=== PATIENT | female | born 1990 | race Two or more races ===

== ENCOUNTER 2021-07-22 16:46 | Inpatient (IN) | payer OTHER ==
[~2021-07-22] VITALS: Ht 157.5 cm; Wt 2.7 kg
[2021-07-22] MEDS ORDERED: PRENATAL TABLE1 EAC1 (17:39)
== END 2021-07-25 17:43 | disposition home or self-care (01) | DRG 785 ==
LOC: OBS/DEL 16:46 → OB/GYN 21:07 → LDR 21:07 → OB/GYN 07-23 00:31
PROVIDERS: ADMIT Obstetrics & Gynecology; ATTEND Obstetrics & Gynecology
PROC: 0UB70ZZ Excision of Bilateral Fallopian Tubes, Open Approach (ICD-10-PCS; 2021-07-22)
PROC: 4A1HXCZ Monitoring of Products of Conception, Cardiac Rate, External Approach (ICD-10-PCS; 2021-07-22)
PROC: 10D00Z1 Extraction of Products of Conception, Low, Open Approach (ICD-10-PCS; principal; 2021-07-22 22:15)
DX: O34.211 Maternal care for low transverse scar from previous cesarean delivery (principal); Z3A.37 37 weeks gestation of pregnancy; Z37.0 Single live birth; Z20.822 Contact with and (suspected) exposure to COVID-19

== ENCOUNTER 2023-05-02 05:30 | Day surgery (SDC) | payer OTHER ==
[2023-04-28 11:21] LABS: URINE APPEARANCE Clear; URINE BILIRRUBIN Negative (NEGATIVE); URINE BLOOD Negative; URINE COLOR Yellow; URINE GLUCOSE Negative (NEGATIVE); URINE LEUKOCYTE Negative; URINE NITRATE Negative; URINE PROTEIN Negative (NEGATIVE); URINE UROBILINOGEN 0.2 E.U./dl
[2023-04-28 11:27] LABS: URINE BACTERIA 1423.5 uL (0.0-1933); URINE EPITHELIAL CELLS 36.4 uL (0.0-38.8); URINE RBC 16.2 uL (0.0-20.8)
[2023-04-28 11:36] LABS: HEMATOCRIT 36.4 % (36.0-45.00); HEMOGLOBIN 11.6 g/dL (12.0-15.00); MEAN CELL VOLUME 76.9 fL (80.00-100.00); MEAN CORPUSCULAR HEMOGLOBIN 24.6 pg (27.00-32.0); PLATELET COUNT 220 K/uL (150-450); RED BLOOD COUNT 4.73 M/uL (4.00-6.00); RED CELL DISTRIBUTION WIDTH 16.5 % (11.5-14.5)
[2023-04-28 12:22] LABS: ALBUMIN 3.9 gm/dL (3.4-5.0); BILIRUBIN TOTAL 0.35 mg/dL (0.3-1.2); CALCIUM 9.1 mg/dL (8.5-10.1); CREATININE SERUM 0.58 mg/dL (0.55-1.02); GFR 122.06; GLOBULINA 3.3 G/DL (2.4-3.5); POTASSIUM 4.33 mEq/L (3.5-5.1); TOTAL PROTEIN 7.2 gm/dL (6.4-8.2)
[2023-04-28 12:25] LABS: INR 0.98; PARTIAL THROMBOPLASTIN TIME 31.6 SECONDS (22.0-34.0); PROTHROMBIN TIME 10.3 SECONDS (9.0-11.5)
[~2023-05-02] VITALS: Ht 157.5 cm; Wt 96.6 kg
[~2023-05-02 05:30] MED LIST: PRENATAL TABLE1 EAC1
[2023-05-02] MEDS ORDERED: CEFAZOLIN SODIUM 1,000 MG VIAL ONE ×2 (10:00→14:02)
[2023-05-02] MEDS ORDERED: CEFAZOLIN SODIUM 1,000 MG VIAL IV ONE (11:15)
[2023-05-02] MEDS ORDERED: CEFAZOLIN SODIUM 1,000 MG VIAL IV SCH (12:00)
[2023-05-02] MEDS ORDERED: FAMOTIDINE/PF 20 MG/10 ML SYRINGE IV SCH (12:00)
[2023-05-02] MEDS ORDERED: FAMOTIDINE/PF 20 MG/2 ML VIAL ONE (14:02)
== END 2023-05-02 15:55 | disposition home or self-care (01) ==
LOC: CIR.AMB 05:30
PROVIDERS: ATTEND Specialist
DX: N80.C11 Endometriosis of the anterior abdominal wall, fascia and muscular layers (principal); D21.4 Benign neoplasm of connective and other soft tissue of abdomen; Z20.822 Contact with and (suspected) exposure to COVID-19

== ENCOUNTER 2024-06-04 22:50 | Emergency (ER) | payer OTHER ==
[~2024-06-04] VITALS: Ht 157.5 cm; Wt 93.9 kg
[2024-06-05] MEDS ORDERED: PROMETHAZINE HCL 50 MG/ML AMPUL IM STA (00:49)
[2024-06-05] MEDS ORDERED: KETOROLAC TROMETHAMINE 60 MG VIAL IM STA (00:49)
[2024-06-05] MEDS ORDERED: 0.9 % SODIUM CHLORIDE 1,000 ML IV ONE (01:00)
[2024-06-05] MEDS ORDERED: PROMETHAZINE HCL 50 MG/ML AMPUL IM ONE (01:10)
[2024-06-05] MEDS ORDERED: KETOROLAC TROMETHAMINE 60 MG VIAL IM ONE (01:10)
[2024-06-05] MEDS ORDERED: BARIUM SULFATE 450 ML ORAL.SUSP PO ONE (01:23)
[2024-06-05 01:48] LABS: HEMATOCRIT 35.6 % (36.0-45.00); MEAN CELL VOLUME 76.6 fL (80.00-100.00); MEAN CORPUSCULAR HGB CONC 32.3 g/dl (32.0-36.0); PLATELET COUNT 207 K/uL (150-450); RED BLOOD COUNT 4.64 M/uL (4.00-6.00); RED CELL DISTRIBUTION WIDTH 15.1 % (11.5-14.5)
[2024-06-05 01:50] LABS: HEMOGLOBIN 11.5 g/dL (12.0-15.00); MEAN CORPUSCULAR HEMOGLOBIN 24.7 pg (27.00-32.0)
[2024-06-05 02:05] LABS: INR 0.95; PARTIAL THROMBOPLASTIN TIME 29.2 SECONDS (22.0-34.0); PROTHROMBIN TIME 10.4 SECONDS (9.0-11.5)
[2024-06-05 02:10] LABS: ALBUMIN 3.7 gm/dL (3.4-5.0); ALKALINE PHOSPHATASE 53 U/L (50-136); ALT/SGPT 20 U/L (12-78); AMYLASE 35 U/L (25-115); ANION GAP 10 (10.0-20.0); AST/SGOT 17 U/L (15-37); BILIRUBIN TOTAL 0.25 mg/dL (0.3-1.2); BILIRUBIN,CONJUGATED < 0.10 mg/dL (0.0-0.2); BILIRUBIN,UNCONJUGATED 0.15 mg/dL (0.0-0.6); BLOOD UREA NITROGEN 12 mg/dL (7-18); BUN CREA RATIO 18 (7.0-25.0); CALCIUM 9.5 mg/dL (8.5-10.1); CARBON DIOXIDE 25 mEq/L (21-32); CHLORIDE 110 mmol/L (98-107); CREATININE SERUM 0.65 mg/dL (0.55-1.02); GFR 106.31; GLOBULINA 3.5 G/DL (2.4-3.5); GLUCOSE FASTING 104 mg/dL (65-100); LIPASE 27 U/L (13-75); OSMOLALITY SERUM 281 MOSM/KG (275-295); POTASSIUM 3.88 mEq/L (3.5-5.1); SODIUM 141 mmol/L (136-145); TOTAL PROTEIN 7.2 gm/dL (6.4-8.2)
[2024-06-05 02:34] LABS: PH,URINE 7.5 (5.0-8.0); URINE APPEARANCE Clear; URINE BILIRRUBIN Negative (NEGATIVE); URINE BLOOD Small; URINE COLOR Yellow; URINE GLUCOSE Negative (NEGATIVE); URINE KETONE Negative (NEGATIVE); URINE LEUKOCYTE Negative; URINE NITRATE Negative; URINE PROTEIN Negative (NEGATIVE); URINE UROBILINOGEN 0.2 E.U./dl
[2024-06-05 02:38] LABS: URINE BACTERIA 113.8 uL (0.0-1933); URINE EPITHELIAL CELLS 13.5 uL (0.0-38.8); URINE RBC 36.5 uL (0.0-20.8)
[2024-06-05 02:43] LABS: URINE WBC 0.7 uL (0.0-23.2)
[2024-06-05] MEDS ORDERED: KETOROLAC TROMETHAMINE 30 MG VIAL IV STA (06:56)
[2024-06-05] MEDS ORDERED: KETOROLAC TROMETHAMINE 30 MG VIAL ONE (07:20)
== END 2024-06-05 11:49 | disposition home or self-care (01) ==
LOC: ER 22:53
PROVIDERS: General Practice
DX: R10.31 Right lower quadrant pain (principal); D25.9 Leiomyoma of uterus, unspecified; Z98.891 History of uterine scar from previous surgery

== ENCOUNTER 2024-07-05 09:09 | Outpatient (CLI) | payer OTHER | END 2024-07-05 09:14 | disposition home or self-care (01) | LOC: SONOGRAMA 09:09 | PROVIDERS: ATTEND Specialist | DX: N80.C11 Endometriosis of the anterior abdominal wall, fascia and muscular layers (principal) ==

== ENCOUNTER 2024-07-16 11:01 | Outpatient (CLI) | payer OTHER | END 2024-07-16 11:03 | disposition home or self-care (01) | LOC: TOM 11:01 | PROVIDERS: ATTEND Specialist | DX: J98.59 Other diseases of mediastinum, not elsewhere classified (principal) ==

== ENCOUNTER 2024-10-03 08:05 | Day surgery (SDC) | payer OTHER ==
[2024-09-26 08:49] LABS: BASO % 0.6 % (0.1-1.2); EOS # 0.16 (0.04-0.54); EOS % 1.8 % (0.7-7.0); LYMPH # 2.75 (1.18-3.74); LYMPH % 31.1 % (19.3-53.1); MEAN PLATELET VOLUME 11.00 fl (9.4-12.4); MONO # 0.61 (0.24-0.82); MONO % 6.9 % (4.7-12.5); NEUT # 5.24 (1.56-6.13); NEUT % 59.4 % (34.0-71.1); RED CELL DISTRIBUTION WIDTH 15.5 % (11.6-14.4)
[2024-09-26 08:51] VITALS: BP 107/70
[2024-09-26 09:10] LABS: INR 0.97
[2024-09-26 09:25] LABS: ALT/SGPT 25.0 U/L (12-78); AST/SGOT 16.0 U/L (15-37); BILIRUBIN TOTAL 0.22 mg/dL (0.3-1.2); BUN CREA RATIO 22.0 (7.0-25.0); CREATININE SERUM 0.6 mg/dL (0.55-1.02); GFR 115.85; GLOBULINA 3.2 G/DL (2.4-3.5); GLUCOSE FASTING 105.0 mg/dL (65-100); OSMOLALITY SERUM 284.0 MOSM/KG (275-295)
[~2024-10-03] VITALS: Ht 157.5 cm; Wt 93.9 kg
== END 2024-10-03 13:30 | disposition home or self-care (01) ==
LOC: CIR.AMB 08:05
PROVIDERS: ATTEND Internal Medicine
DX: K22.89 Other specified disease of esophagus (principal); R93.3 Abnormal findings on diagnostic imaging of other parts of digestive tract

== ENCOUNTER 2025-02-05 07:45 | Inpatient (IN) | payer OTHER ==
[~2025-02-05] VITALS: Ht 157.5 cm; Wt 95.7 kg
[2025-02-05 09:37] LABS: BASO % 0.4 % (0.1-1.2); EOS # 0.10 (0.04-0.54); EOS % 1.0 % (0.7-7.0); LYMPH # 2.50 (1.18-3.74); LYMPH % 25.5 % (19.3-53.1); MEAN PLATELET VOLUME 11.30 fl (9.4-12.4); MONO # 0.60 (0.24-0.82); MONO % 6.1 % (4.7-12.5); NEUT # 6.53 (1.56-6.13); NEUT % 66.7 % (34.0-71.1); RED CELL DISTRIBUTION WIDTH 15.7 % (11.6-14.4)
[2025-02-05 09:38] LABS: URINE APPEARANCE Clear; URINE BILIRRUBIN Negative (NEGATIVE); URINE BLOOD Negative; URINE COLOR Yellow; URINE GLUCOSE Negative (NEGATIVE); URINE KETONE Negative (NEGATIVE); URINE LEUKOCYTE Negative; URINE NITRATE Negative; URINE PROTEIN Negative (NEGATIVE); URINE UROBILINOGEN 0.2 E.U./dl
[2025-02-05 09:42] LABS: URINE EPITHELIAL CELLS 34.9 uL (0.0-38.8); URINE RBC 3.6 uL (0.0-20.8); URINE WBC 10.4 uL (0.0-23.2)
[2025-02-05 09:46] VITALS: BP 109/72
[2025-02-05 09:49] LABS: URINE CAST 0.14 uL (0.0-1.40)
[2025-02-05 10:10] LABS: INR 0.97
[2025-02-05 10:16] LABS: ALT/SGPT 21.0 U/L (12-78); AST/SGOT 11.0 U/L (15-37); BILIRUBIN TOTAL 0.56 mg/dL (0.3-1.2); BUN CREA RATIO 13.0 (7.0-25.0); CREATININE SERUM 0.62 mg/dL (0.55-1.02); GFR 111.55; GLOBULINA 3.4 G/DL (2.4-3.5); GLUCOSE FASTING 98.0 mg/dL (65-100); OSMOLALITY SERUM 276.0 MOSM/KG (275-295)
[2025-02-05 13:18] VITALS: BP 138/80
[2025-02-12] MEDS ORDERED: CEFOXITIN SODIUM 2,000 MG VIAL IV ONE (12:08)
[2025-02-12] MEDS ORDERED: POVIDONE-IODINE 118 ML BOTT TOP ONE (13:27)
[2025-02-12] MEDS ORDERED: SUGAMMADEX SODIUM 200 MG/2 ML VIAL IV ONE (17:05)
[2025-02-12] MEDS ORDERED: ONDANSETRON HCL 2 MG/ML VIAL ONE (18:45)
[2025-02-12] MEDS ORDERED: KETOROLAC TROMETHAMINE 60 MG VIAL IM STA (19:55)
[2025-02-12] MEDS ORDERED: RINGERS SOLUTION,LACTATED 1,000 ML IV SCH (20:00)
[2025-02-12] MEDS ORDERED: MORPHINE SULFATE 4 MG/ML VIAL IV PRN (20:00)
[2025-02-12 23:05] LABS: BASO % 0.3 % (0.1-1.2); EOS # 0.00 (0.04-0.54); EOS % 0.0 % (0.7-7.0); LYMPH # 1.11 (1.18-3.74); LYMPH % 5.6 % (19.3-53.1); MEAN PLATELET VOLUME 12.00 fl (9.4-12.4); MONO # 0.93 (0.24-0.82); MONO % 4.7 % (4.7-12.5); NEUT # 17.79 (1.56-6.13); NEUT % 88.8 % (34.0-71.1); RED CELL DISTRIBUTION WIDTH 15.8 % (11.6-14.4)
[2025-02-13 00:15] VITALS: BP 138/80
[2025-02-13 08:00] VITALS: BP 117/68
[2025-02-13] MEDS ORDERED: OxyCODONE HCL 5 MG TABLET (ROXICODONE) PO PRN (09:00)
[2025-02-13] MEDS ORDERED: ACETAMINOPHEN 325 MG TABLET PO PRN (09:00)
[2025-02-13 20:32] VITALS: BP 119/78
[2025-02-14] VITALS: BP 107/69
[2025-02-14 08:56] VITALS: BP 120/71
[2025-02-14 19:04] VITALS: BP 117/69
[2025-02-15] VITALS: BP 103/63
[2025-02-15 08:00] VITALS: BP 92/60
[2025-02-15 16:00] VITALS: BP 112/73
[2025-02-15] MEDS ORDERED: COLACE100 MG PO (17:57)
[2025-02-15] MEDS ORDERED: ACETAMINOPHEN325 M1 PO (17:57)
[2025-02-15] MEDS ORDERED: IBU800 MG PO (17:57)
== END 2025-02-15 18:18 | disposition home or self-care (01) | DRG 743 ==
LOC: SURG 02-12 07:45 → O/R 02-12 11:00 → OB/GYN 02-12 11:00
PROVIDERS: Surgery; ADMIT Obstetrics & Gynecology; ATTEND Obstetrics & Gynecology
PROC: 0UT70ZZ Resection of Bilateral Fallopian Tubes, Open Approach (ICD-10-PCS; 2025-02-12)
PROC: 0DBW0ZX Excision of Peritoneum, Open Approach, Diagnostic (ICD-10-PCS; 2025-02-12)
PROC: 0DBW0ZZ Excision of Peritoneum, Open Approach (ICD-10-PCS; 2025-02-12)
PROC: 0UT90ZZ Resection of Uterus, Open Approach (ICD-10-PCS; principal; 2025-02-12 09:30)
PROC: 0UB00ZZ Excision of Right Ovary, Open Approach (ICD-10-PCS; 2025-02-12 09:30)
DX: D25.1 Intramural leiomyoma of uterus (principal); N84.1 Polyp of cervix uteri; N80.519 Endometriosis of the rectum, unspecified depth